=== PATIENT | male | born 1985 | race Caucasian/White ===

== ENCOUNTER → 2020-06-06 17:05 | Outpatient (BNVA) | payer OTHER, SELFPAY | PROVIDERS: Family Provider Pediatrics Adolescent Medicine; Visit Provider Nurse Practitioner | DX: Z11.59 Encounter for screening for other viral diseases (principal) | CPT/HCPCS: 87635 ==

== ENCOUNTER 2021-02-10 01:36 | Emergency (ER) | payer SELFPAY ==
[2021-02-10 01:42] VITALS: BP 165/98; PULSE 105; RESP 18; TEMP 36.3; O2SAT 98; BMI 32.5
[2021-02-10 01:59] LABS: Basophils # 0.1 10^3/uL (0.0-0.1); Basophils % 0.7 %; Eosinophils # 0.1 10^3/uL (0.0-0.8); Eosinophils % 0.9 %; Hematocrit 46.9 % (42.0-52.0); Hemoglobin 15.4 g/dL (11.7-16.6); Lymphocytes # 3.2 10^3/uL (0.8-4.8); Lymphocytes % 21.3 %; Mean Corpuscular HGB Conc 32.8 g/dL (30.0-36.0); Mean Corpuscular Hemoglobin 29.1 pg (28.0-34.0); Mean Corpuscular Volume 88.7 fL (80-94); Mean Platelet Volume 10.6 fL (7.4-10.4); Monocytes % 6.9 %; Neutrophils # 10.49 10^3/uL (1.8-7.7); Neutrophils % 69.9 %; Nucleated Red Blood Cells % 0 %; Platelet Count 323 10^3/cmm (130-400); Red Blood Count 5.29 10^6/uL (4.1-5.3); Red Cell Distribution Width 13.2 % (12.1-15.1)
[2021-02-10 02:05] LABS: Add Urine Microscopic? NO; Charge for UA Resulting for Rev
[2021-02-10 02:06] LABS: Bilirubin Urine Neg (Negative); Blood Urine Neg (Negative); Glucose Urine UA Norm (Normal); Ketones Urine Negative (Negative); Leukocyte Esterase Urine Negative (Negative); Nitrate Urine Negative (Negative); Protein Urine Neg (Negative); Urine Appearance Clear (CLEAR); Urine Color Yellow (Yellow); Urobilinogen Urine Norm (Negative); pH Urine 7 (5-7)
--- NOTE | 2021-02-10 02:06 | CTR_ITS ---
PROCEDURE INFORMATION: Exam: CT Abdomen And Pelvis With Contrast Exam date and time: 02/10/2021 2:15 AM Age: 35 years old Clinical indication: Abdominal pain; Localized; Lower TECHNIQUE: Imaging protocol: Computed tomography of the abdomen and pelvis with contrast. Radiation optimization: All CT scans at this facility use at least one of these dose optimization techniques: automated exposure control; mA and/or kV adjustment per patient size (includes targeted exams where dose is matched to clinical indication); or iterative reconstruction. Contrast material: OMNI 300; Contrast volume: 95 ml; Contrast route: INTRAVENOUS (IV); COMPARISON: No relevant prior studies available. RADIATION DOSE METRICS: Total DLP (mGy-cm): 1910.6 FINDINGS: Liver: Normal. No mass. Gallbladder and bile ducts: Normal. No calcified stones. No ductal dilation. Pancreas: Normal. No ductal dilation. Spleen: Normal. No splenomegaly. Adrenal glands: Normal. No mass. Kidneys and ureters: Normal. No hydronephrosis. Stomach and bowel: Unremarkable. No obstruction. No mucosal thickening. Appendix: The appendix is visualized and is normal in configuration. Intraperitoneal space: See Lymph nodes finding. Vasculature: Unremarkable. No abdominal aortic aneurysm. Lymph nodes: There are mildly prominent mesenteric lymph nodes seen predominately within the right flank. Mesenteric lymphadenitis cannot be excluded. Urinary bladder: Unremarkable as visualized. Reproductive: Unremarkable as visualized. Bones/joints: Unremarkable. No acute fracture. Soft tissues: Unremarkable. CT/CT abdomen pelvis w con* [id number] IMPRESSION: 1. Normal appendix 2. Mildly prominent lymph nodes are seen in the right lower flank that are below CT criteria for lymphadenopathy. However, mesenteric lymphadenitis cannot be excluded. Radiation Dose CTDIVOL = (mGy): DLP = 1910.6 (mGy-cm)
--- NOTE | 2021-02-10 02:18 | PC.NURSE ---
hold meds at this time
[2021-02-10 02:19] LABS: Alanine Aminotransferase 23 U/L (0-41); Albumin Level 4.7 g/dL (3.5-5.2); Alkaline Phosphatase 97 IU/L (40-130); C Reactive Protein 4.6 mg/L (0.0-4.9); Chloride 102 mmol/L (98-107); Potassium 3.9 mmol/L (3.5-5.1); Sodium 139 mmol/L (136-145)
--- NOTE | 2021-02-10 02:19 | ED_ITS ---
HPI - Abdominal Pain General: Chief Complaint: Abdominal Pain Stated Complaint: lower abd pain Time Seen by Provider: 02/10/21 01:52 History of Present Illness: HPI narrative: 35-year-old gentleman who states that he has had right-sided abdominal pain on and off for the past couple of months. This is usually lasts just a few seconds and goes away on its own. Tonight, the pain has been significant, and has not gone away. He has been nauseated. He notes that radiated into his chest at one point, but has not done that at all now. He is not really short of breath. No fever. No vomiting or diarrhea. No history of belly surgery. MD elicited complaint: abdominal pain Pertinent past history: none Onset (ago): hour(s) Pain Consistency: constant Location: RUQ, RLQ and R flank Severity: moderate Quality: cramping and stabbing Radiation: none Migration to: no migration Exacerbating factors: nothing Relieving factors: nothing Associated Symptoms: Reports dyspepsia and nausea; Denies bloating, change in bowel habits, chills, constipation, diarrhea, dysuria, fever(s) and vomiting Review of Systems Const: Denies: fever(s) or chills Card: Reports: chest pain (Resolved. ) Resp: Reports: non-productive cough (Smoker); Denies: dyspnea or productive cough GI: Reports: nausea; Denies: vomiting, diarrhea, constipation, bloating or change in bowel habits : Denies: dysuria Neuro: Denies: headache(s), dizziness or confusion PFS ED PFSH: Medical History (Updated 02/10/21 @ 03:36 by Kyrie Joseph DO) Current smoker Heart burn Surgical History (Updated 06/06/20 @ 17:29 by BRI Parks) History of knee surgery right and left Family History Sister Psychiatric illness Brother Psychiatric illness Other Cancer Diabetes Hypertension Stroke Social History Smoking and tobacco status: current every day smoker Second hand smoke exposure: Yes Smoking risk assessment/counseling performed?: Yes Alcohol intake: current Alcohol intake frequency: holidays/special occasions only Desire information about alcohol rehabilitation?: No Counseling given: No Desire information about substance/drug rehabilitation?: No Counseling given: No Adopted: No Caregiver/support person: No Lives independently: Yes Household members: family Housing: House Marital status: Single Number of children: 0 service: No Current occupational status: employed Current occupation: [employer] Current occupational exposures/hazards: No Pets and animals: Yes Pets & animals: dog(s) History of recent travel: No Current gender identity: Male Financial difficulty paying for basics: Very Hard Physical Exam Const: GENERAL APPEARANCE: well developed ORIENTATION/CONSCIOUSNESS: Yes oriented to person, Yes oriented to place and Yes oriented to time HENMT: COMMON NORMALS: normocephalic, external ears normal and Normal external nose present HEAD & SCALP: normocephalic; no scalp tenderness FACE & SINUS: normal facial exam NOSE: Normal external nose present and No nasal discharge present EXTERNAL EAR: Yes external ears normal Eye: COMMON NORMALS: Equal, round and reactive pupils present, EOMs intact bilaterally and conjunctivae normal EYELID: eyelids normal CONJUNCTIVA: Yes conjunctivae normal PUPIL: Yes Equal, round and reactive pupils present Neck/C-Spine: GENERAL: No tracheal deviation Chest: COMMONS NORMALS: normal inspection of the chest CHEST: No tenderness Resp: COMMON NORMALS: clear to auscultation bilaterally EFFORT & INSPECTION: No tachypneic, No respiratory distress, No retractions, No uses accessory muscles and No tracheal deviation AUSCULTATION: clear to auscultation bilaterally, no rhonchi, no wheezes and lung sounds not diminished Cardio: COMMON NORMALS: regular rate and regular rhythm RATE: regular rate RHYTHM: regular rhythm HEART SOUNDS: no murmurs PERIPHERAL PULSES: radial pulses present GI: COMMON NORMALS: Soft to palpation INSPECTION: No abdominal distension AUSCULTATION: No Hyperactive bowel sounds present and No Hypoactive bowel sounds present PALPATION: Yes Soft to palpation, Yes Tenderness to palpation present (GI) Details: RLQ and RUQ, No Guarding due to palpation present (GI), No Rigid due to palpation and No Rebound tenderness present PERCUSSION: no dullness to percussion and no tympanic to percussion : BLADDER/KIDNEY EXAM: Yes CVA tenderness on the right Back/Pelvis: GENERAL BACK: Yes CVA tenderness Neuro: SENSORIUM/ORIENTATION: Yes oriented to person, Yes oriented to place and Yes oriented to time Psych: COMMON NORMALS: mental status grossly normal Skin: COMMON NORMALS: no rashes or lesions noted GENERAL SKIN EXAM: no rashes or lesions noted Course Vital Signs: Vital signs: Vital Signs Temperature 98.1 F 02/10/21 03:43 Pulse Rate 85 02/10/21 03:43 Respiratory Rate 16 02/10/21 03:43 Blood Pressure 142/76 02/10/21 03:43 Pulse Oximetry 99 02/10/21 03:43 MDM - Abdominal Pain MDM Narrative: Medical decision making narrative: White blood cell count is 15, but without left shift. Other laboratory is benign. CT of the belly shows subclinical lymph nodes that are prominent in the right lower quadrant and flank likely suggestive of mesenteric lymphadenitis. Normal appendix is seen. Lab Data: Labs: Lab Results 02/10/21 02/10/21 02/10/21 Range/Units 01:55 01:55 02:00 WBC 15.0 H (4.0-10.0) 10^3/ uL RBC 5.29 (4.1-5.3) 10^6/u L Hgb 15.4 (11.7-16.6) g/dL Hct 46.9 (42.0-52.0) % MCV 88.7 (80-94) fL MCH 29.1 (28.0-34.0) pg MCHC 32.8 (30.0-36.0) g/dL RDW 13.2 (12.1-15.1) % Plt Count 323 (130-400) 10^3/c mm MPV 10.6 H (7.4-10.4) fL Neut % (Auto) 69.9 % Lymph % (Auto) 21.3 % [place] % (Auto) 6.9 % Eos % (Auto) 0.9 % Baso % (Auto) 0.7 % Neut # (Auto) 10.49 H (1.8-7.7) 10^3/u L Lymph # (Auto) 3.2 (0.8-4.8) 10^3/u L [place] # (Auto) 1.0 H (0.2-0.9) 10^3/u L Eos # (Auto) 0.1 (0.0-0.8) 10^3/u L Baso # (Auto) 0.1 (0.0-0.1) 10^3/u L Nucleated RBC % (a uto) 0 % Nucleated RBCs # 0.0 /100WBC Sodium 139 (136-145) mmol/L Potassium 3.9 (3.5-5.1) mmol/L Chloride 102 (98-107) mmol/L Carbon Dioxide 21 L (22-29) mmol/L Anion Gap 19.9 H (5-19) BUN 11 (6-20) mg/dL Creatinine 1.1 (0.7-1.2) mg/dL GFR Calculation 76.6 L (90-130) mL/min Glucose 186 H (65-115) mg/dL Calculated Osmolal ity 292 (285-295) mOsm/k g Calcium 9.2 (8.5-10.5) mg/dL Total Bilirubin 0.3 (0.15-1.2) mg/dL AST 26 (0-40) U/L ALT 23 (0-41) U/L Alkaline Phosphata se 97 (40-130) IU/L C-Reactive Protein 4.6 (0.0-4.9) mg/L Total Protein 7.5 (6.6-8.7) g/dL Albumin 4.7 (3.5-5.2) g/dL Globulin 2.8 (1.3-4.6) g/dL Lipase 40 (13-60) U/L Urine Color Yellow (Yellow) Urine Appearance Clear (CLEAR) Urine pH 7 (5-7) Ur Specific Gravit y 1.010 (1.005-1.030) Urine Protein Neg (Negative) Urine Glucose (UA) Norm (Normal) Urine Ketones Negative (Negative) Urine Blood Neg (Negative) Urine Nitrate Negative (Negative) Urine Bilirubin Neg (Negative) Urine Urobilinogen Norm (Negative) mg/dL Ur Leukocyte Therese ase Negative (Negative) Discharge Plan Discharge Patient Disposition: Home Clinical Impression: Acute mesenteric lymphadenitis Condition: Stable Prescriptions: New ketorolac 10 mg tablet 10 mg PO TID PRN (Reason: pain) Qty: 10 RF: 0 No Action chlorhexidine gluconate [Peridex] 0.12 % mouthwash 15 ml BUCCAL BID Qty: 473 RF: 5 Discharge Orders: Discharge ED (Routine); Ordered 02/10/21 Ordered By: Kyrie Joseph Discharge Diet: Advance as tolerated Discharge Activity: Increase activity as tolerated Patient Instructions: Mesenteric Adenitis (ED) Activity Restrictions/Additional Instructions: Return for fever greater than 100, worsening pain despite treatment, vomiting liquids or medications, any other concerning symptoms. 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
[2021-02-10] MEDS: iohexol 300 mg/mL 100 mL Btl IV (02:37)
[2021-02-10 02:39] LABS: Anion Gap 19.9 (5-19); Blood Urea Nitrogen 11 mg/dL (6-20); Calcium 9.2 mg/dL (8.5-10.5); Carbon Dioxide 21 mmol/L (22-29); Globulin 2.8 g/dL (1.3-4.6); Glomerular Filtration Rate 76.6 mL/min (90-130); Glucose 186 mg/dL (65-115); Lipase 40 U/L (13-60); Osmolality Calculated 292 mOsm/kg (285-295); Total Bilirubin 0.3 mg/dL (0.15-1.2); Total Protein 7.5 g/dL (6.6-8.7)
[2021-02-10 02:41] LABS: Aspartate Amino Transferase 26 U/L (0-40)
[2021-02-10 03:43] VITALS: BP 142/76; PULSE 85; RESP 16; TEMP 36.7; O2SAT 99
== END 2021-02-10 03:44 | disposition home or self-care (01) ==
PROVIDERS: Emergency Provider Emergency Medicine
DX: I88.0 Nonspecific mesenteric lymphadenitis (principal); F17.210 Nicotine dependence, cigarettes, uncomplicated
CPT/HCPCS: 74177; 80053; 81003; 83690; 85025; 86140; 99283; Q9967

== ENCOUNTER → 2021-02-11 15:03 | Outpatient (BNVA) | payer SELFPAY | PROVIDERS: PCP Nurse Practitioner; Visit Provider Nurse Practitioner Family | DX: R50.9 Fever, unspecified | CPT/HCPCS: 80053; 85025 ==

== ENCOUNTER 2021-02-17 05:39 | Emergency (ER) | payer SELFPAY ==
[2021-02-17 05:46] VITALS: BP 131/78; PULSE 84; RESP 16; TEMP 36.6; O2SAT 97; BMI 32.5
[2021-02-17 05:56] VITALS: BP 131/78; PULSE 90; RESP 16; O2SAT 98
--- NOTE | 2021-02-17 06:00 | ED_ITS ---
HPI - Nausea/Vomiting/Diarrhea General: Chief complaint: Nausea/Vomiting/Diarrhea Stated complaint: n/v Time Seen by Provider: 02/17/21 06:00 Source: patient and RN notes reviewed Limitations: no limitations History of Present Illness: HPI Narrative: This patient is a 35-year-old male who presents to the emergency department stating he got nauseated and had a small amount of vomit that was less than 30 cc. And was foaming. Patient was seen in the emergency department the other day he was told that he had mesenteric adenitis and was placed on Cipro and Flagyl and advised to come back to the emergency department if he vomited or had a fever. Patient denies fever patient denies vomiting other than this episode last night or approximately hour ago. This patient does not appear to be acutely ill or sick at this time. Patient immediately asked for work note. Patient denies abdominal pain MD elicited complaint: nausea and vomiting Associated nausea: Yes Associated symtoms: Reports nausea; Denies anxiety, change in vision, chest pain, dysuria, fatigue, headache(s) or palpitations Review of Systems General: Reports: 10 or more systems reviewed and unremarkable except in HPI and below Const: Denies: fever(s), chills, body aches or fatigue Eyes: Denies: change in vision or blurry vision ENMT: Denies: throat pain, hoarseness or mouth pain Card: Denies: chest pain, palpitations, irregular heart rhythm, edema, swelling of feet/ankles or lightheadedness Resp: Denies: dyspnea, productive cough, non-productive cough, wheezing or pain on inspiration GI: Reports: nausea; Denies: abdominal pain or vomiting : Denies: flank pain, dysuria, urinary frequency, urinary urgency or urinary hesitancy Musc: Denies: neck pain, back pain, extremity pain, extremity swelling, joint pain, joint swelling, joint redness, joint warmth or limited range of motion Skin/Breast: Denies: rash, pruritus, erythema or skin tenderness Neuro: Denies: headache(s), numbness in extremities or weakness in extremities Psych: Denies: anxiety or depression PFS ED PFSH: Medical History Current smoker Heart burn Surgical History History of knee surgery right and left Family History Sister Psychiatric illness Brother Psychiatric illness Other Cancer Diabetes Hypertension Stroke Social History Smoking and tobacco status: current every day smoker Second hand smoke exposure: Yes Smoking risk assessment/counseling performed?: Yes Alcohol intake: current Alcohol intake frequency: holidays/special occasions only Desire information about alcohol rehabilitation?: No Counseling given: No Desire information about substance/drug rehabilitation?: No Counseling given: No Adopted: No Caregiver/support person: No Lives independently: Yes Household members: family Housing: House Marital status: Single Number of children: 0 service: No Current occupational status: employed Current occupation: [employer] Current occupational exposures/hazards: No Pets and animals: Yes Pets & animals: dog(s) History of recent travel: No Current gender identity: Male Financial difficulty paying for basics: Very Hard Physical Exam 2 Const: COMMON NORMALS: no acute distress, average body habitus, patient oriented x3, no limitations, healthy appearing, alert and well nourished HENMT: COMMON NORMALS: normocephalic, atraumatic, external ears normal, EAC's normal, TM's normal bilaterally, Normal external nose present and Normal nasal mucous membranes and turbinates present HEAD & SCALP: normocephalic and atraumatic NOSE: Normal external nose present and Normal nasal mucous membranes and turbinates present EXTERNAL EAR: Yes external ears normal EXTERNAL AUDITORY CANAL: EAC's normal TYMPANIC MEMBRANE: TM's normal bilaterally Neck/C-Spine: COMMON NORMALS: full ROM, no lymphadenopathy, supple, no meningeal signs, no JVD, Thyroid normal and No carotid bruits THYROID: Thyroid normal Chest: COMMONS NORMALS: normal inspection of the chest, normal palpation of entire chest wall, normal inspection of the breasts and normal palpation of the breasts Breast/axilla inspection: Yes normal inspection of the breasts BREAST/AXILLA PALPATION: Yes normal palpation of the breasts Resp: COMMON NORMALS: normal respiratory effort, No retractions, No use of accessory muscles, clear to auscultation bilaterally and percussion normal AUSCULTATION: clear to auscultation bilaterally PERCUSSION: percussion normal Cardio: COMMON NORMALS: no JVD, regular rate, regular rhythm, S1 normal heart sound present, S2 normal heart sound present, No gallops present (Cardio), No clicks present (Cardio), No murmurs present (Cardio), No rub (Cardio) and Peripheral pulses 2+ throughout RATE: regular rate RHYTHM: regular rhythm HEART SOUNDS: S1 normal heart sound present and S2 normal heart sound present PERIPHERAL PULSES: Peripheral pulses 2+ throughout GI: COMMON NORMALS: Normal to inspection, nondistended, normoactive bowel sounds present, Soft to palpation, non-tender, No hepatosplenomegaly present, no masses and no bruits PALPATION: Yes Soft to palpation and Yes No hepatosplenomegaly present : COMMON NORMALS: Yes no CVA tenderness BLADDER/KIDNEY EXAM: Yes no CVA tenderness Back/Pelvis: COMMON NORMALS: no CVA tenderness, thoracic and lumbar spine normal to inspection, no thoracic nor lumbar tenderness, thoraco-lumbar ROM normal and straight leg raise negative bilaterally Extremity: COMMON NORMALS: normal to inspection, full ROM, capillary refill normal, no joint enlargement, no clubbing, cyanosis or edema, no calf tenderness and no pedal edema Neuro: COMMON NORMALS: patient oriented x3 SENSORIUM/ORIENTATION: Yes alert MENINGEAL SIGNS: Yes no meningeal signs Course Reevaluation(s): Reevaluation #1: This patient is here for nonemergent issue. Patient complains of nausea and vomiting however he states he only felt nauseated and vomited up less than 30 cc of only staff. Patient is sitting in the bed comfortable does not appear to be acutely sick or acutely ill. Patient request a work note for today. Patient was seen 2 days ago was told he had mesenteric adenitis and placed on Cipro and Flagyl. Patient subsequently after that was seen in the local clinic but stated that that doctor didn't do anything for him either. Again this patient does not appear to be acutely sick. Time: 06:03 Vital Signs: Vital signs: Vital Signs Temperature 97.9 F 02/17/21 05:46 Pulse Rate 84 02/17/21 05:46 Respiratory Rate 16 02/17/21 05:46 Blood Pressure 131/78 02/17/21 05:46 Pulse Oximetry 97 02/17/21 05:46 MDM - Nausea/Vomiting/Diarrhea MDM Narrative: Medical decision making narrative: Patient be discharged home. Patient has nonemergent complaint and nonspecific. Patient is to continue all home medications. Start with clear liquid diet and advanced as needed. Will give patient Zofran as needed for nausea. Follow-up with PCP in 2 to 3 days Medical Records: Attestation: I reviewed the patient's medical records. Lab Data: Attestation: I reviewed the patient's lab results. Discharge Plan Discharge Patient Disposition: Home Clinical Impression: Nausea, Encounter for medical screening examination Condition: Stable Prescriptions: New ondansetron 4 mg tablet,disintegrating 4 mg PO DAILY PRN (Reason: nausea and vomiting) 4 Days RF: 0 No Action metronidazole [Flagyl] 500 mg tablet 500 mg PO TID 10 Days Qty: 30 RF: 0 ciprofloxacin HCl [Cipro] 500 mg tablet 500 mg PO BID 10 Days Qty: 20 RF: 0 ketorolac 10 mg tablet 10 mg PO TID PRN (Reason: pain) Qty: 10 RF: 0 Discharge Orders: Discharge ED (Routine); Ordered 02/17/21 Ordered By: Nas Avelar Referrals: Lani Zhao, CYTOTECHNOLOGIST/HISTOTECHNOLOGIST-C [Primary Care Provider] - Discharge Diet: Advance as tolerated Discharge Activity: Resume usual activity Patient Instructions: Opioid Safety Activity Restrictions/Additional Instructions: Patient is to continue all home medications. Start with clear liquid diet and advanced as needed. Will give patient Zofran as needed for nausea. Follow-up with PCP in 2 to 3 days Coding Level of Care Code ED Dealer Relationship Manager for Livan Garcia
[2021-02-17 06:14] VITALS: BP 125/90; PULSE 82; RESP 16; TEMP 36.6; O2SAT 97
== END 2021-02-17 06:14 | disposition home or self-care (01) ==
PROVIDERS: Emergency Provider Emergency Medicine; PCP Nurse Practitioner
DX: R11.0 Nausea (principal)
CPT/HCPCS: 99282

== ENCOUNTER 2021-02-26 11:10 | Outpatient (CLI) | payer SELFPAY ==
[2021-02-26] MEDS: iohexol 300 mg/mL 50 mL Btl PO (11:35)
--- NOTE | 2021-02-26 13:00 | CT_ITS ---
WS: [id number] CT ABDOMEN AND PELVIS WITH CONTRAST HISTORY: I88.0 - Nonspecific mesenteric lymphadenitis TECHNIQUE: Imaging performed of the abdomen and pelvis with IV contrast. Single phase imaging of the abdomen. Coronal and sagittal reformats are submitted. All CT scans at [facility] use at least one of these dose optimization techniques: automated exposure control; mA and/or kV adjustment per patient size (includes targeted exams where dose is matched to clinical indication); or iterativ e reconstruction. IV CONTRAST: Omnipaque 300; 95 mL IV. Oral contrast: Yes. DLP: 1159.71 mGycm COMPARISON: 02/10/2021 Lower thorax: Lung bases are clear. Heart is normal size. Small hiatal hernia. Liver/biliary system: Normal size with no intrahepatic dilatation. Gallbladder: Normal. No gallstones or wall thickening. No pericholecystic fluid. Pancreas: Normal size pancreas and pancreatic duct. No adjacent inflammation. Spleen: Normal size spleen. No mass or infarct. Adrenal glands: Normal. Right kidney: Normal. Left kidney: Normal. Aorta: Normal. Lymphadenopathy: Subcentimeter central mesenteric and RIGHT lower quadrant lymph nodes are identified . The largest lymph nodes measure 8 mm in diameter. Free fluid: None. GI tract: Normal appendix. No GI tract obstruction. Moderate wall thickening with edema involving the terminal ileum and distal small bowel. Not a lot of adjacent inflammation of the lumen does appear n arrowed. No additional wall thickening is identified. Abdominal wall: Unremarkable abdominal wall. No hernia. Pelvis: No free fluid or adenopathy within the pelvis. Bones: Unremarkable. CT/CT abdomen pelvis w con* [id number] IMPRESSION: 1. Moderate terminal ileitis with mesenteric adenitis. Could be infectious or related to Crohn's disease. 2. No free fluid or free air. 3. Normal appendix.
[2021-02-26] MEDS: iohexol 300 mg/mL 100 mL Btl IV (13:09)
== END 2021-02-26 11:11 | disposition home or self-care (01) ==
LOC: RADWPI 11:12
PROVIDERS: PCP Nurse Practitioner; Visit Provider Nurse Practitioner Family
DX: I88.0 Nonspecific mesenteric lymphadenitis (principal); K50.00 Crohn's disease of small intestine without complications
CPT/HCPCS: 74177; Q9967

== ENCOUNTER → 2021-04-24 11:52 | Outpatient (BNVA) | payer OTHER, SELFPAY | PROVIDERS: PCP Nurse Practitioner; Visit Provider Nurse Practitioner Family | DX: Z20.822 Contact with and (suspected) exposure to COVID-19 (principal); I88.0 Nonspecific mesenteric lymphadenitis; K50.00 Crohn's disease of small intestine without complications; R10.9 Unspecified abdominal pain | CPT/HCPCS: 87635 ==

== ENCOUNTER 2022-03-05 11:55 | Emergency (ER) | payer SELFPAY ==
--- NOTE | 2022-03-05 12:28 | ECG_ITS ---
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 Measurements Intervals [place] Rate: 80 P: 58 GA: 148 QRS: 17 QRSD: 89 T: 51 QT: 356 QTc: 411 Interpretive Statements SINUS RHYTHM No previous ECG available for comparison Electronically Signed On 03-06-2022 17:06:03 CDT by Quentin Pitt M.D. [email or web address]
[2022-03-05 12:46] VITALS: BP 134/90; PULSE 91; RESP 16; O2SAT 96; BMI 31.0
--- NOTE | 2022-03-05 13:02 | W.ED.DIZZY ---
HPI - Dizziness General: Chief Complaint: Dizziness Stated Complaint: Dizzy Time Seen by Provider: 03/05/22 11:59 Source: patient Mode of arrival: ambulatory Limitations: no limitations History of Present Illness: HPI Narrative: Patient is a 36-year-old male who presents to ED today with a complaint of dizziness over the past 3 days. Patient states dizziness seems to be fairly constant and does not seem to be worse with movement or head turning. He states he is able to get up and ambulate but reports his dizziness seems to worsen when I get going . Patient is not having any chest pain, shortness of breath, difficulty breathing, or palpitations. He does not complain of any tinnitus, hearing loss, or ear pain. Patient reports adequate hydration. Denies drug use (apart from rare marijuana use), alcohol use, excessive caffeine/energy drink use. Patient states dizziness does not seem to be worsened when going from a seated to standing position. He states today the dizziness caused him to fall backwards onto a couch. Patient was ambulatory without assistance into the ED and back to his room. He does not complain of a headache currently. He has had a history of migraines previously. Of note patient states he takes a large amount of Tylenol daily (approximately 3g) and states he has been for years due to various body pains . MD elicited complaint: dizziness Onset (ago): day(s) (3 days ago) Severity: mild Associated symptoms: Denies chest pain, chills, headache(s), malaise, nausea, palpitations, syncope or vomiting Associated neuro symptoms: Deny confusion or numbness in extremities Stroke scale total: 0 Review of Systems Const: Denies: fever(s), chills, body aches, fatigue or malaise Eyes: Denies: change in vision, blurry vision, blind spots, photophobia, floaters or seeing flashes Card: Denies: chest pain, palpitations, irregular heart rhythm, edema, swelling of feet/ankles, syncope, pre-syncope, dyspnea on exertion or orthopnea Resp: Denies: dyspnea, productive cough, non-productive cough, wheezing, pain on inspiration, hemoptysis or chest congestion GI: Denies: abdominal pain, nausea, vomiting or diarrhea : Denies: flank pain, dysuria or hematuria Musc: Denies: neck pain, back pain, extremity pain or joint pain Skin/Breast: Denies: rash Neuro: Reports: dizziness; Denies: headache(s), numbness in extremities, weakness in extremities, sensory changes, lack of coordination, difficulty walking, confusion, behavioral changes, Slurred speech present, difficulty communicating thoughts or seizure-like activity PFSH ED PFSH: Medical History Current smoker Heart burn Surgical History History of knee surgery right and left Family History Sister Psychiatric illness Brother Psychiatric illness Other Cancer Diabetes Hypertension Stroke Social History Second hand smoke exposure: Yes Smoking risk assessment/counseling performed?: Yes Alcohol intake: current Alcohol intake frequency: holidays/special occasions only Desire information about alcohol rehabilitation?: No Counseling given: No Desire information about substance/drug rehabilitation?: No Counseling given: No Adopted: No Caregiver/support person: No Lives independently: Yes Household members: family Housing: House Marital status: Single Number of children: 0 service: No Current occupational status: employed Current occupation: [employer] Current occupational exposures/hazards: No Pets and animals: Yes Pets & animals: dog(s) History of recent travel: No Current gender identity: Male Financial difficulty paying for basics: Very Hard Physical Exam Const: COMMON NORMALS: no acute distress, patient oriented x3, no limitations and alert GENERAL APPEARANCE: cooperative NUTRITIONAL APPEARANCE: overweight ORIENTATION/CONSCIOUSNESS: Yes awake, Yes oriented to person, Yes oriented to place and Yes oriented to time HENMT: COMMON NORMALS: normocephalic, atraumatic, hearing grossly normal bilaterally, external ears normal, EAC's normal and TM's normal bilaterally HEAD & SCALP: normal to inspection, normocephalic and atraumatic FACE & SINUS: normal facial exam EXTERNAL EAR: Yes external ears normal EXTERNAL AUDITORY CANAL: EAC's normal TYMPANIC MEMBRANE: TM's normal bilaterally Eye: COMMON NORMALS: Equal, round and reactive pupils present and EOMs intact bilaterally GENERAL EYE: appearance normal, both eyes and all related structures and normal light reflex PUPIL: Yes Equal, round and reactive pupils present DIRECT OPHTHALMOSCOPY: Yes normal light reflex OTHER: no nystagmus noted Neck/C-Spine: COMMON NORMALS: full ROM, no lymphadenopathy and no meningeal signs GENERAL: Yes normal visual inspection Resp: COMMON NORMALS: normal respiratory effort and clear to auscultation bilaterally AUSCULTATION: clear to auscultation bilaterally Cardio: COMMON NORMALS: regular rate and regular rhythm RATE: regular rate RHYTHM: regular rhythm GI: COMMON NORMALS: Normal to inspection, nondistended, normoactive bowel sounds present, Soft to palpation, non-tender, No hepatosplenomegaly present and no masses PALPATION: Yes Soft to palpation and Yes No hepatosplenomegaly present Extremity: COMMON NORMALS: normal to inspection GENERAL: Yes normal exam except as noted Neuro: LEI COMA SCALE: document GCS findings [place] coma scale eye opening: Spontaneous [place] coma scale verbal response: Orientated [place] coma scale motor response: Obey commands Lei coma scale total score: 15 COMMON NORMALS: patient oriented x3, CN's II-XII intact bilaterally, moves all extremities, no focal motor deficits, no sensory deficits noted and gait normal SENSORIUM/ORIENTATION: Yes alert, Yes oriented to person, Yes oriented to place and Yes oriented to time MENINGEAL SIGNS: Yes no meningeal signs SPEECH: speech normal GAIT: Yes Normal gait present Skin: COMMON NORMALS: no rashes or lesions noted GENERAL SKIN EXAM: no rashes or lesions noted Course Vital Signs: Vital signs: Vital Signs Pulse Rate 83 03/05/22 13:28 Respiratory Rate 16 03/05/22 12:46 Blood Pressure 134/93 03/05/22 13:28 Pulse Oximetry 96 03/05/22 12:46 [facility] - Dizziness Medical Decision Making Patient states his dizziness has almost completely resolved following IV fluids and meclizine. His blood work is non-concerning. His vital signs are stable. He has been ambulatory without assistance while here. He does not have anything on his history or physical exam to make me concerned for central vertigo. This time I recommend he follow-up with his primary care provider for further evaluation. Strict return to ED precautions verbally given. Lab Data : 03/05/22 13:00 03/05/22 13:00 Laboratory Results WBC 12.9 10^3/uL (4.0-10.0) H 03/05/22 13:00 RBC 5.86 10^6/uL (4.1-5.3) H 03/05/22 13:00 Hgb 17.1 g/dL (11.7-16.6) H 03/05/22 13:00 Hct 51.0 % (42.0-52.0) 03/05/22 13:00 MCV 87.0 fl (80-94) 03/05/22 13:00 MCH 29.2 pg (28.0-34.0) 03/05/22 13:00 MCHC 33.5 g/dL (30.0-36.0) 03/05/22 13:00 RDW 13.3 % (12.1-15.1) 03/05/22 13:00 Plt Count 304 10^3/cmm (130-400) 03/05/22 13:00 MPV 10.8 fL (7.4-10.4) H 03/05/22 13:00 Neut % (Auto) 75.9 % 03/05/22 13:00 Lymph % (Auto) 16.6 % 03/05/22 13:00 Yell % (Auto) 5.4 % 03/05/22 13:00 Eos % (Auto) 1.1 % 03/05/22 13:00 Baso % (Auto) 0.5 % 03/05/22 13:00 Neut # (Auto) 9.81 10^3/uL (1.8-7.7) H 03/05/22 13:00 Lymph # (Auto) 2.1 10^3/uL (0.8-4.8) 03/05/22 13:00 Yell # (Auto) 0.7 10^3/uL (0.2-0.9) 03/05/22 13:00 Eos # (Auto) 0.1 10^3/uL (0.0-0.8) 03/05/22 13:00 Baso # (Auto) 0.1 10^3/uL (0.0-0.1) 03/05/22 13:00 Nucleated RBC % (auto) 0 % 03/05/22 13:00 Nucleated RBCs # 0.0 /100WBC 03/05/22 13:00 Sodium 137 mmol/L (136-145) 03/05/22 13:00 Potassium 4.1 mmol/L (3.5-5.1) 03/05/22 13:00 Chloride 103 mmol/L (98-107) 03/05/22 13:00 Carbon Dioxide 21 mmol/L (22-29) L 03/05/22 13:00 Anion Gap 17.1 (5-19) 03/05/22 13:00 BUN 14 mg/dL (6-20) 03/05/22 13:00 Creatinine 0.7 mg/dL (0.7-1.2) 03/05/22 13:00 GFR Calculation 128.3 mL/min (90-130) 03/05/22 13:00 Glucose 117 mg/dL (65-115) H 03/05/22 13:00 Calculated Osmolality 286 mOsm/kg (285-295) 03/05/22 13:00 Calcium 9.1 mg/dL (8.5-10.5) 03/05/22 13:00 Total Bilirubin 0.4 mg/dL (0.15-1.2) 03/05/22 13:00 AST 24 U/L (0-40) 03/05/22 13:00 ALT 25 U/L (0-41) 03/05/22 13:00 Alkaline Phosphatase 96 IU/L (40-130) 03/05/22 13:00 Total Protein 8.0 g/dL (6.6-8.7) 03/05/22 13:00 Albumin 5.0 g/dL (3.5-5.2) 03/05/22 13:00 Globulin 3.0 g/dL (1.3-4.6) 03/05/22 13:00 Urine Color Yellow (Yellow) 03/05/22 14:16 Urine Appearance Clear (CLEAR) 03/05/22 14:16 Urine pH 5 (5-7) 03/05/22 14:16 Ur Specific [place] 1.020 (1.005-1.030) 03/05/22 14:16 Urine Protein Neg (Negative) 03/05/22 14:16 Urine Glucose (UA) Norm (Normal) 03/05/22 14:16 Urine Ketones Negative (Negative) 03/05/22 14:16 Urine Blood Neg (Negative) 03/05/22 14:16 Urine Nitrate Negative (Negative) 03/05/22 14:16 Urine Bilirubin Neg (Negative) 03/05/22 14:16 Urine Urobilinogen Norm mg/dL (Negative) 03/05/22 14:16 Ur Leukocyte Esterase Negative (Negative) 03/05/22 14:16 Acetaminophen < 5.0 ug/mL (10-30) L 03/05/22 13:00 Discharge Plan Discharge Patient Disposition: Home Clinical Impression: Dizziness Condition: Stable Prescriptions: No Action Tylenol 325 mg Capsule 325 mg PO QID PRN (Reason: Pain) 0RF Discharge Orders: Discharge ED (Routine); Ordered 03/05/22 Ordered By: Sherrill Fritz Referrals: Lani Zhao, ENGINEER/[facility] [Primary Care Provider] - Patient Instructions: Lightheadedness (ED), Dizziness (ED) Activity Restrictions/Additional Instructions: As we discussed you may continue meclizine at home and can take 50 mg every 6-8 hours as needed. This medication is available [id number]. As we discussed please follow-up with your primary care provider if dizziness persists past the next few days. Coding Level of Care Code ED Slubber Tender for Livan Fwd Exam Comprehensive
[2022-03-05] MEDS: sodium chloride 0.9% 1,000 ML 999 ML IV (13:07)
[2022-03-05] MEDS: meclizine 25 mg tablet 50 MG PO (13:07)
[2022-03-05 13:12] LABS: Basophils # 0.1 10^3/uL (0.0-0.1); Eosinophils # 0.1 10^3/uL (0.0-0.8); Hemoglobin 17.1 g/dL (11.7-16.6); Lymphocytes # 2.1 10^3/uL (0.8-4.8); Monocytes # 0.7 10^3/uL (0.2-0.9); Nucleated Red Blood Cells % 0 %
[2022-03-05 13:15] LABS: Basophils % 0.5 %; Eosinophils % 1.1 %; Lymphocytes % 16.6 %; Mean Corpuscular HGB Conc 33.5 g/dL (30.0-36.0); Mean Corpuscular Hemoglobin 29.2 pg (28.0-34.0); Mean Platelet Volume 10.8 fL (7.4-10.4); Monocytes % 5.4 %; Neutrophils # 9.81 10^3/uL (1.8-7.7); Neutrophils % 75.9 %; Platelet Count 304 10^3/cmm (130-400); Red Blood Count 5.86 10^6/uL (4.1-5.3); Red Cell Distribution Width 13.3 % (12.1-15.1); White Blood Count 12.9 10^3/uL (4.0-10.0)
[2022-03-05 13:17] VITALS: BP 135/78; PULSE 77
[2022-03-05 13:28] VITALS: BP 134/93; BP 148/93; PULSE 83; PULSE 95
[2022-03-05 13:30] LABS: Alanine Aminotransferase 25 U/L (0-41); Alkaline Phosphatase 96 IU/L (40-130); Anion Gap 17.1 (5-19); Aspartate Amino Transferase 24 U/L (0-40); Blood Urea Nitrogen 14 mg/dL (6-20); Calcium 9.1 mg/dL (8.5-10.5); Carbon Dioxide 21 mmol/L (22-29); Chloride 103 mmol/L (98-107); Glomerular Filtration Rate 128.3 mL/min (90-130); Glucose 117 mg/dL (65-115); Osmolality Calculated 286 mOsm/kg (285-295); Potassium 4.1 mmol/L (3.5-5.1); Sodium 137 mmol/L (136-145); Total Bilirubin 0.4 mg/dL (0.15-1.2)
[2022-03-05 13:46] LABS: Acetaminophen < 5.0 ug/mL (10-30)
[2022-03-05 14:31] LABS: Add Urine Microscopic? NO; Charge for UA Resulting for Rev
[2022-03-05 14:35] LABS: Bilirubin Urine Neg (Negative); Blood Urine Neg (Negative); Glucose Urine UA Norm (Normal); Ketones Urine Negative (Negative); Leukocyte Esterase Urine Negative (Negative); Nitrate Urine Negative (Negative); Protein Urine Neg (Negative); Urine Appearance Clear (CLEAR); Urine Color Yellow (Yellow); Urobilinogen Urine Norm (Negative); pH Urine 5 (5-7)
== END 2022-03-05 16:55 | disposition home or self-care (01) ==
PROVIDERS: Emergency Provider Physician Assistant; PCP Nurse Practitioner
DX: R42 Dizziness and giddiness (principal)
CPT/HCPCS: 80053; 80307; 81003; 85025; 93005; 99283; J7030; J8597

== ENCOUNTER 2022-03-16 13:29 | Emergency (ER) | payer SELFPAY ==
[2022-03-16 13:39] VITALS: BP 119/76; PULSE 97; RESP 16; TEMP 36.7; O2SAT 97; BMI 31.5
[2022-03-16 15:38] LABS: Basophils # 0.1 10^3/uL (0.0-0.1); Basophils % 0.4 %; Eosinophils # 0.2 10^3/uL (0.0-0.8); Eosinophils % 1.7 %; Hematocrit 44.3 % (42.0-52.0); Hemoglobin 14.7 g/dL (11.7-16.6); Lymphocytes # 1.5 10^3/uL (0.8-4.8); Lymphocytes % 11.5 %; Mean Corpuscular HGB Conc 33.2 g/dL (30.0-36.0); Mean Corpuscular Hemoglobin 28.8 pg (28.0-34.0); Mean Corpuscular Volume 86.9 fl (80-94); Mean Platelet Volume 10.7 fL (7.4-10.4); Monocytes # 0.9 10^3/uL (0.2-0.9); Neutrophils # 10.53 10^3/uL (1.8-7.7); Neutrophils % 78.8 %; Nucleated Red Blood Cells % 0 %; Platelet Count 280 10^3/cmm (130-400); Red Cell Distribution Width 13.5 % (12.1-15.1); White Blood Count 13.4 10^3/uL (4.0-10.0)
[2022-03-16 15:42] LABS: Add Urine Microscopic? NO; Alanine Aminotransferase 20 U/L (0-41); Albumin Level 4.3 g/dL (3.5-5.2); Alkaline Phosphatase 76 IU/L (40-130); Anion Gap 16.2 (5-19); Aspartate Amino Transferase 18 U/L (0-40); Blood Urea Nitrogen 11 mg/dL (6-20); Calcium 8.4 mg/dL (8.5-10.5); Carbon Dioxide 18 mmol/L (22-29); Charge for UA Resulting for Rev; Chloride 103 mmol/L (98-107); Creatinine Clr Calc Pharmacy 152.6073; Globulin 2.9 g/dL (1.3-4.6); Glucose 92 mg/dL (65-115); Lipase 36 U/L (13-60); Osmolality Calculated 275 mOsm/kg (285-295); Potassium 4.2 mmol/L (3.5-5.1); Sodium 133 mmol/L (136-145); Total Bilirubin 0.2 mg/dL (0.15-1.2); Total Protein 7.2 g/dL (6.6-8.7)
[2022-03-16 16:02] LABS: Urine Appearance Clear (CLEAR); Urine Color Yellow (Yellow); pH Urine 5 (5-7)
[2022-03-16 16:03] LABS: Bilirubin Urine Neg (Negative); Blood Urine Neg (Negative); Glucose Urine UA Norm (Normal); Ketones Urine Negative (Negative); Leukocyte Esterase Urine Negative (Negative); Nitrate Urine Negative (Negative); Protein Urine Neg (Negative); Urobilinogen Urine Norm (Negative)
[2022-03-16 16:37] VITALS: BP 118/63; PULSE 86; RESP 16; O2SAT 95
--- NOTE | 2022-03-16 16:41 | ECG_ITS ---
[facility] Test Date: 2022-03-16 Pat Name: Nilay Stout Department: Room: Gender: Male Nurses Aide: : 1985 Requested By: Richa Teague Order Number: [id number] Markham MD: Candelaria Wright M.D. Measurements Intervals [place] Rate: 66 P: 30 [place]: 153 QRS: 0 QRSD: 101 T: 12 QT: 376 QTc: 395 Interpretive Statements SINUS RHYTHM Compared to ECG 03/05/2022 12:49:59 No significant changes Electronically Signed On 03-16-2022 21:18:29 CDT by Candelaria Wright M.D. [id number]
--- NOTE | 2022-03-16 16:42 | ED_ITS ---
HPI - General Adult General: Chief complaint: Abdominal Pain Stated complaint: severe abdominal pain/nausea Time Seen by Provider: 03/16/22 16:29 History of Present Illness: Patient is a 36-year-old male without any significant past medical history presents emergency room with complaints of upper abdominal pain x 2 days. Patient reports pain has been going on for last 2 days but now acutely worsened today. It is, patient has had multiple episodes of loose stool. Patient denies any fever or chills, cough, runny nose, sore throat, chest pain, shortness of breath, complaints. Onset: 2 days ago Duration:2 days Location:home Severity:moderate Associated symptoms: Deny chest pain, dyspnea, nausea, rash, palpitations or vomiting Review of Systems Const: Denies: fever(s) or chills Eyes: Denies: change in vision ENMT: Denies: mouth pain Card: Denies: chest pain or palpitations Resp: Denies: dyspnea or non-productive cough GI: Reports: abdominal pain (+upper abdominal pain) and diarrhea; Denies: nausea or vomiting : Denies: dysuria Musc: Denies: extremity pain Skin/Breast: Denies: rash or new lesions Neuro: Denies: weakness in extremities Psych: Reports: other (Normal mood) Ray/Lymph: Denies: easy bruising PFSH ED PFSH: Medical History Current smoker Heart burn Surgical History History of knee surgery right and left Family History Sister Psychiatric illness Brother Psychiatric illness Other Cancer Diabetes Hypertension Stroke Social History Second hand smoke exposure: Yes Smoking risk assessment/counseling performed?: Yes Alcohol intake: current Alcohol intake frequency: holidays/special occasions only Desire information about alcohol rehabilitation?: No Counseling given: No Desire information about substance/drug rehabilitation?: No Counseling given: No Adopted: No Caregiver/support person: No Lives independently: Yes Household members: family Housing: House Marital status: Single Number of children: 0 service: No Current occupational status: employed Current occupation: [employer] Current occupational exposures/hazards: No Pets and animals: Yes Pets & animals: dog(s) History of recent travel: No Current gender identity: Male Financial difficulty paying for basics: Very Hard Physical Exam Const: COMMON NORMALS: alert HENMT: COMMON NORMALS: atraumatic HEAD & SCALP: atraumatic MOUTH: moist mucous membranes not abnormal Eye: COMMON NORMALS: EOMs intact bilaterally and conjunctivae normal CONJUNCTIVA: Yes conjunctivae normal Neck/C-Spine: COMMON NORMALS: full ROM and supple Resp: COMMON NORMALS: normal respiratory effort and clear to auscultation bilaterally AUSCULTATION: clear to auscultation bilaterally Cardio: COMMON NORMALS: regular rate RATE: regular rate GI: COMMON NORMALS: Soft to palpation PALPATION: Yes Soft to palpation OTHER: +mild epigastric focal TTP. NO guarding rebound, guarding, rigidity. No CVA tenderness to percussion. Neg Cardona/Neg McBurney's point tenderness, no graham prabupic tenderness to palpation. Extremity: COMMON NORMALS: full ROM Neuro: SENSORIUM/ORIENTATION: Yes alert MOTOR EXAM: No Abnormal motor strength present and Other motor observations present (no focal motor deficits) Psych: COMMON NORMALS: speech normal SPEECH: Yes normal speech MOOD & AFFECT: Yes euthymic mood Course Vital Signs: Vital signs: Vital Signs Temperature 98.1 F 03/16/22 13:39 Pulse Rate 86 03/16/22 16:37 Respiratory Rate 16 03/16/22 16:37 Blood Pressure 118/63 03/16/22 16:37 Pulse Oximetry 95 03/16/22 16:37 MDM - General Adult Medical Decision Making 36-year-old male with no signet past medical who presented to emergency room with complaints of upper abdominal pain with diarrhea. On exam, patient has mild epigastric tenderness to palpation. No guarding or rebound tenderness. Patient is afebrile today. White count 13.4. Lab within normal limit. CT of pelvis showed ascending colitis with mild mesenteric edema. Patient is able to tolerate p.o. in the emergency room. I will give the patient a prescription for admitted if his symptoms worsen if he has bloody diarrhea worsening pain, nausea/vomiting fever/chills, or any new concerning complaints Rx tylenol PRN abd pain, maalox/pepcid PRN dyspepsia, and zofran PRN nausea/vomiting, augmentin BID if symptoms worsens Disposition: Discharge. Patient counseled regarding diagnostic impression, treatment plan. Patient given ED strict return precautions to return for continuation, worsening, or development of new symptoms. Instructed to f/u w/ PCP regarding symptoms today. Patient verbalized understanding. Lab Data : 03/16/22 15:12 03/16/22 15:12 Radiology Impressions Abdomen/Pelvis CT 03/16/22 16:40 IMPRESSION: 1. Ascending colon wall thickening suggestive of a colitis with some surrounding mesenteric edema. 2. Diverticulosis without diverticulitis. 3. Scattered prominent mesenteric lymph nodes measuring up to 12 mm, largely in the right abdomen, nonspecific. Laboratory Results WBC 13.4 10^3/uL (4.0-10.0) H 03/16/22 15:12 RBC 5.10 10^6/uL (4.1-5.3) 03/16/22 15:12 Hgb 14.7 g/dL (11.7-16.6) 03/16/22 15:12 Hct 44.3 % (42.0-52.0) 03/16/22 15:12 MCV 86.9 fl (80-94) 03/16/22 15:12 MCH 28.8 pg (28.0-34.0) 03/16/22 15:12 MCHC 33.2 g/dL (30.0-36.0) 03/16/22 15:12 RDW 13.5 % (12.1-15.1) 03/16/22 15:12 Plt Count 280 10^3/cmm (130-400) 03/16/22 15:12 MPV 10.7 fL (7.4-10.4) H 03/16/22 15:12 Neut % (Auto) 78.8 % 03/16/22 15:12 Lymph % (Auto) 11.5 % 03/16/22 15:12 [place] % (Auto) 7.0 % 03/16/22 15:12 Eos % (Auto) 1.7 % 03/16/22 15:12 Baso % (Auto) 0.4 % 03/16/22 15:12 Neut # (Auto) 10.53 10^3/uL (1.8-7.7) H 03/16/22 15:12 Lymph # (Auto) 1.5 10^3/uL (0.8-4.8) 03/16/22 15:12 [place] # (Auto) 0.9 10^3/uL (0.2-0.9) 03/16/22 15:12 Eos # (Auto) 0.2 10^3/uL (0.0-0.8) 03/16/22 15:12 Baso # (Auto) 0.1 10^3/uL (0.0-0.1) 03/16/22 15:12 Nucleated RBC % (auto) 0 % 03/16/22 15:12 Nucleated RBCs # 0.0 /100WBC 03/16/22 15:12 Sodium 133 mmol/L (136-145) L 03/16/22 15:12 Potassium 4.2 mmol/L (3.5-5.1) 03/16/22 15:12 Chloride 103 mmol/L (98-107) 03/16/22 15:12 Carbon Dioxide 18 mmol/L (22-29) L 03/16/22 15:12 Anion Gap 16.2 (5-19) 03/16/22 15:12 BUN 11 mg/dL (6-20) 03/16/22 15:12 Creatinine 0.8 mg/dL (0.7-1.2) 03/16/22 15:12 GFR Calculation 110.0 mL/min (90-130) 03/16/22 15:12 Glucose 92 mg/dL (65-115) 03/16/22 15:12 Calculated Osmolality 275 mOsm/kg (285-295) L 03/16/22 15:12 Calcium 8.4 mg/dL (8.5-10.5) L 03/16/22 15:12 Total Bilirubin 0.2 mg/dL (0.15-1.2) 03/16/22 15:12 AST 18 U/L (0-40) 03/16/22 15:12 ALT 20 U/L (0-41) 03/16/22 15:12 Alkaline Phosphatase 76 IU/L (40-130) 03/16/22 15:12 Troponin T Baseline 6 ng/L (0-15) 03/16/22 15:12 Total Protein 7.2 g/dL (6.6-8.7) 03/16/22 15:12 Albumin 4.3 g/dL (3.5-5.2) 03/16/22 15:12 Globulin 2.9 g/dL (1.3-4.6) 03/16/22 15:12 Lipase 36 U/L (13-60) 03/16/22 15:12 Urine Color Yellow (Yellow) 03/16/22 15:12 Urine Appearance Clear (CLEAR) 03/16/22 15:12 Urine pH 5 (5-7) 03/16/22 15:12 Ur Specific [place] 1.020 (1.005-1.030) 03/16/22 15:12 Urine Protein Neg (Negative) 03/16/22 15:12 Urine Glucose (UA) Norm (Normal) 03/16/22 15:12 Urine Ketones Negative (Negative) 03/16/22 15:12 Urine Blood Neg (Negative) 03/16/22 15:12 Urine Nitrate Negative (Negative) 03/16/22 15:12 Urine Bilirubin Neg (Negative) 03/16/22 15:12 Urine Urobilinogen Norm mg/dL (Negative) 03/16/22 15:12 Ur Leukocyte Esterase Negative (Negative) 03/16/22 15:12 Imaging Data Other Imaging: Radiologist's impression: [place] [address] CT Scan Report Signed Patient: Nilay Stout Unit #: [id number] : 1985 Age/Sex: 36 / M ADM Date: 03/16/22 Loc: ER Room/Bed: Attending Dr: Ordering Provider/Ordering MD: Richa Teague MD Date of Service: 03/16/22 Procedure(s): CT abdomen pelvis con [id number] Accession Number(s): [id number] Report Number: [id number] PROCEDURE INFORMATION: Exam: CT Abdomen And Pelvis Without Contrast Exam date and time: 03/16/2022 5:01 PM Age: 36 years old Clinical indication: Abdominal pain; Periumbilical; Additional info: Abd pain x 2 days with vomiting , no fever TECHNIQUE: Imaging protocol: Computed tomography of the abdomen and pelvis without contrast. Radiation optimization: All CT scans at this facility use at least one of these dose optimization techniques: automated exposure control; mA and/or kV adjustment per patient size (includes targeted exams where dose is matched to clinical indication); or iterative reconstruction. COMPARISON: CT abdomen pelvis w con* [id number] 02/26/2021 1:01 PM RADIATION DOSE METRICS: Total DLP (mGy-cm): 1895.52 FINDINGS: Liver: Normal. No mass. Gallbladder and bile ducts: Normal. No calcified stones. No ductal dilation. Pancreas: Normal. No ductal dilation. Spleen: Normal. No splenomegaly. Adrenal glands: Normal. No mass. Kidneys and ureters: Normal. No hydronephrosis. Stomach and bowel: Ascending colon wall thickening suggestive of a colitis with some surrounding mesenteric edema. Diverticulosis without diverticulitis. Appendix: No evidence of appendicitis. Intraperitoneal space: See Stomach and bowel finding. Vasculature: Unremarkable. No abdominal aortic aneurysm. Lymph nodes:? Scattered prominent mesenteric lymph nodes measuring up to 12 mm, largely in the right abdomen, nonspecific. Urinary bladder: Unremarkable as visualized. Reproductive: Unremarkable as visualized. Bones/joints: Unremarkable. No acute fracture. Soft tissues: Unremarkable. CT/CT abdomen pelvis wo con [id number] IMPRESSION: 1. Ascending colon wall thickening suggestive of a colitis with some surrounding mesenteric edema. 2. Diverticulosis without diverticulitis. 3. Scattered prominent mesenteric lymph nodes measuring up to 12 mm, largely in the right abdomen, nonspecific. ? Dictated By: Raji Quach MD Signed By: Raji Quach MD Signed Date/Time: 03/16/22 172 DD/ 1701 Discharge Plan Discharge Patient Disposition: Home Clinical Impression: Abdominal pain, Diarrhea, Colitis Condition: Stable Prescriptions: New amoxicillin-pot clavulanate 875-125 mg tablet 1 tab PO BID 7 Days Qty: 14 0RF Pepcid 20 mg tablet 20 mg PO BID PRN (Reason: abdominal pain) 10 Days Qty: 20 0RF ondansetron 4 mg tablet,disintegrating 4 mg PO TID PRN (Reason: nausea and vomiting) 4 Days Qty: 12 0RF Maalox Advanced 1,000-60 mg tablet,chewable 1 tab PO TID PRN (Reason: abdominal pain) 7 Days Qty: 21 0RF No Action acetaminophen [Tylenol] 325 mg Capsule 325 mg PO QID PRN (Reason: Pain) 0RF Discharge Orders: Discharge ED (Routine); Ordered 03/16/22 Ordered By: Richa Teague Referrals: Lani Zhao, PAPER STACKER-C [Primary Care Provider] - Discharge Diet: Advance as tolerated Discharge Activity: Increase activity as tolerated Activity Restrictions/Additional Instructions: Please come back if you have any worsening abdominal pain, fever or chills, nausea or vomiting, diarrhea, blood in the stool, inability hold down liquid or solids, or any new concerning complaints. Please take your antibiotics as instructed if you do not improve without antibiotics. Watch out for signs of skin changes/redness, mouth redeness or swelling, nausea/vomiting, diarrhea, blood in the urine or any new or concering complaints. Coding Level of Care Code ED Hydrographer for Chg Fwd Exam Comprehensive
[2022-03-16 17:32] LABS: Troponin(5th) Baseline 6 ng/L (0-15)
[2022-03-16 17:53] VITALS: BP 112/69; PULSE 82; O2SAT 97
== END 2022-03-16 17:55 | disposition home or self-care (01) ==
PROVIDERS: Emergency Provider Emergency Medicine; PCP Nurse Practitioner
DX: K52.9 Noninfective gastroenteritis and colitis, unspecified (principal); Z77.22 Contact with and (suspected) exposure to environmental tobacco smoke (acute) (chronic)
CPT/HCPCS: 74176; 80053; 81003; 83690; 84484; 85025; 93005; 99284

== ENCOUNTER 2022-08-31 08:23 | Emergency (ER) | payer SELFPAY ==
[2022-08-31 08:28] VITALS: BP 133/82; PULSE 111; RESP 18; TEMP 36.5; O2SAT 97
--- NOTE | 2022-08-31 08:42 | W.ED.GENADLT ---
HPI - General Adult General: Chief complaint: General Medical Stated complaint: n/v dizzy Time Seen by Provider: 08/31/22 08:33 History of Present Illness: Patient is a 36-year-old male comes to the ED to get cleared for work. Patient reports having a fever and some nausea and vomiting on Wednesday. His symptoms resolved and yesterday he had no fevers, nausea or vomiting. Associated symptoms: Reports nausea and vomiting; Deny chest pain, dyspnea, headache(s), rash or palpitations Review of Systems Const: Reports: fever(s); Denies: chills or fatigue Eyes: Denies: change in vision or eye discomfort ENMT: Denies: throat pain, odynophagia, nasal discharge or nasal congestion Card: Denies: chest pain, palpitations, edema, swelling of feet/ankles, dyspnea on exertion or orthopnea Resp: Denies: dyspnea, productive cough or non-productive cough GI: Reports: nausea and vomiting; Denies: abdominal pain, diarrhea, constipation or hematochezia : Denies: flank pain, difficulty urinating, dysuria or hematuria Musc: Denies: neck pain, back pain or extremity swelling Skin/Breast: Denies: rash or new lesions Neuro: Denies: headache(s), numbness in extremities or weakness in extremities PFSH ED PFSH: Medical History Current smoker Heart burn Surgical History History of knee surgery right and left Family History Sister Psychiatric illness Brother Psychiatric illness Other Cancer Diabetes Hypertension Stroke Social History Second hand smoke exposure: Yes Smoking risk assessment/counseling performed?: Yes Alcohol intake: current Alcohol intake frequency: holidays/special occasions only Desire information about alcohol rehabilitation?: No Counseling given: No Desire information about substance/drug rehabilitation?: No Counseling given: No Adopted: No Caregiver/support person: No Lives independently: Yes Household members: family Housing: House Marital status: Single Number of children: 0 service: No Current occupational status: employed Current occupation: [employer] Current occupational exposures/hazards: No Pets and animals: Yes Pets & animals: dog(s) History of recent travel: No Current gender identity: Male Financial difficulty paying for basics: Very Hard Physical Exam Const: COMMON NORMALS: patient oriented x3 and alert GENERAL APPEARANCE: cooperative and comfortable HENMT: COMMON NORMALS: normocephalic HEAD & SCALP: normocephalic MOUTH: Normal oral and palatal mucosa present THROAT: posterior oropharynx normal and uvula midline Neck/C-Spine: COMMON NORMALS: supple GENERAL: Yes normal visual inspection Resp: COMMON NORMALS: normal respiratory effort, No retractions, No use of accessory muscles and clear to auscultation bilaterally AUSCULTATION: clear to auscultation bilaterally Cardio: COMMON NORMALS: regular rate, regular rhythm, S1 normal heart sound present, S2 normal heart sound present, No gallops present (Cardio), No clicks present (Cardio), No murmurs present (Cardio) and Peripheral pulses 2+ throughout RATE: regular rate RHYTHM: regular rhythm HEART SOUNDS: S1 normal heart sound present and S2 normal heart sound present PERIPHERAL PULSES: Peripheral pulses 2+ throughout GI: COMMON NORMALS: Normal to inspection, nondistended, normoactive bowel sounds present, Soft to palpation, non-tender and no masses PALPATION: Yes Soft to palpation : COMMON NORMALS: Yes no CVA tenderness BLADDER/KIDNEY EXAM: Yes no CVA tenderness Back/Pelvis: COMMON NORMALS: no CVA tenderness Extremity: COMMON NORMALS: normal to inspection Neuro: COMMON NORMALS: patient oriented x3 SENSORIUM/ORIENTATION: Yes alert GAIT: Yes Normal gait present Skin: GENERAL SKIN EXAM: dry skin Course Vital Signs: Vital signs: Vital Signs Temperature 97.7 F 08/31/22 08:57 Pulse Rate 111 H 08/31/22 08:57 Respiratory Rate 18 08/31/22 08:57 Blood Pressure 133/82 08/31/22 08:57 Pulse Oximetry 97 08/31/22 08:57 [facility] - General Adult Medical Decision Making Patient is a 36-year-old male comes to the ED to be medically cleared for work. Patient had flu type symptoms couple days ago but they have since resolved and he has not had any symptoms. He feels normal. Vitals are stable. Exam is benign. Patient diagnosed normal medical exam and was discharged home. Provided him a work note stating that he is cleared to go back to work. Return ED precautions given. Patient understood and agreed with plan. Discharge Plan Discharge Patient Disposition: Home Clinical Impression: Normal exam Condition: Stable Prescriptions: No Action ondansetron HCl 8 mg tablet 8 mg PO Q8H PRN (Reason: nausea and vomiting) Qty: 9 0RF acetaminophen [Tylenol] 325 mg Capsule 325 mg PO QID PRN (Reason: Pain) Discharge Orders: Discharge ED (Routine); Ordered 08/31/22 Ordered By: Felix Moran Referrals: Lani Zhao, [employer] [Primary Care Provider] - Discharge Diet: Regular Discharge Activity: Resume usual activity Activity Restrictions/Additional Instructions: follow-up with medical provider as directed in the next 7 to 10 days for reevaluation. Return to the ER or your medical provider if condition worsens. Please read and understand discharge instructions. Thank you for choosing [facility] for your healthcare needs today. Please realize this is an emergency room and that we are providing you with a medical screening exam and this may not be complete and all inclusive of all the testing and or work up that you may need to determine your ailment or severity of your illness. It is very important that you follow up as instructed or that you return to the Emergency Department should you have concerns or if your condition changes or worsens in any way. 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
[2022-08-31 08:57] VITALS: BP 133/82; PULSE 111; RESP 18; TEMP 36.5; O2SAT 97
== END 2022-08-31 08:55 | disposition home or self-care (01) ==
PROVIDERS: Emergency Provider Physician Assistant; PCP Nurse Practitioner
DX: Z03.89 Encounter for observation for other suspected diseases and conditions ruled out (principal); Z77.22 Contact with and (suspected) exposure to environmental tobacco smoke (acute) (chronic)
CPT/HCPCS: 99283

== ENCOUNTER → 2022-09-01 08:57 | Outpatient (BNVA) | payer SELFPAY | PROVIDERS: PCP Nurse Practitioner; Visit Provider Nurse Practitioner Family | DX: R50.9 Fever, unspecified (principal) | CPT/HCPCS: 87400 ==